=== PATIENT | female | born 1975 | race Caucasian/White ===

== ENCOUNTER → 2016-11-09 | Day surgery (SDC) | payer OTHER ==
[~2016-11-09] MED LIST: ASPI81 PO; BACITRACIN IM FOR SOLN 50,000 UNIT VIAL ONE; CLINDAMYCIN PHOS 900 MG/6 ML VIAL ONE; CYCL-36 PO; FISH300C2 PO; GLUCTAB PO; HYDROmorphone HCL PF 2 MG/ML VIAL ONE; LACTATED RINGER'S 1000 ML INJ 1,000 ML ONE; LIDOCAINE 1%/EPINEPHrine 1:100,000 SOLN 50 ML VIAL ONE; MIDAZOLAM HCL 2 MG/2 ML VIAL ONE; ONDANSETRON HCL 4 MG/2 ML VIAL IV PUSH ONE; PERC5TAB12 PO; PREN0.01 PO; PROPOFOL 200 MG/20 ML AMP IV ONE; SM F10002 PO; SODIUM CHLORIDE 0.9% INJ 10 ML ONE; SODIUM CHLORIDE 0.9% SOLN 100 ML (PAB) BAG IV ONE; SPIR50TA21 PO; ceFAZolin INJ 1,000 MG VIAL ONE; oxyCODONE/ACETAMINOPHEN 5 MG/325 MG TAB ONE
--- NOTE | 2016-11-10 09:20 | MP ---
cc: MIAH RAMIREZ M.D. DATE OF SURGERY: 11/09/2016 PREOPERATIVE DIAGNOSIS Status post bilateral mastectomies and bilateral tissue rooming house operator reconstruction. POSTOPERATIVE DIAGNOSIS Status post bilateral mastectomies and bilateral tissue rooming house operator reconstruction. OPERATION Bilateral stage II breast reconstruction with removal of tissue rooming house operator, reshaping the breast and silicone gel, style 20 600 cc smooth round implant. SURGEON Dr. Ramirez. ANESTHESIA General. INDICATIONS A 41-year-old white female with history of breast cancer, bilateral breast mastectomies, bilateral tissue rooming house operator placement and fillup. No radiation, no chemo. The patient has done very well. Since the surgery the current expansion is 590 ccs. The patient has fairly broad based chest. The current volume is adequate for her cup size. The patient was explained overall the implant selection process, the profile anywhere from moderate plus profile to a extra high profile silicone gel implants were explained. She is willing to go ahead with the appropriate match for her body and is okay with the high profile implants. Overall the volume is also to her liking. The patient understands the possibility of risk and complications including bleeding, infection, wound healing problems, wound dehiscence, prosthesis exposure, loss of reconstruction and future surgeries and also general risk and complication with any surgery and anesthesia. She is willing to go ahead with the surgery. PROCEDURE The patient was brought to the operating room, was given supine position. Anesthesia was started. Prep and drape was done. IV antibiotic had been given. The time-out was called and completed. Lidocaine 1% with epi and saline dilute solution was used to inject around the scars. The old scars were excised. They are horizontal inframammary crease level scar riding approximately three-quarters of an inch on the current time and position. She also has corner keloids. The scar including the keloids were excised. The expanders were exposed through the previous AlloMax. There is adequate thickness of the flap. The expanders were removed and the cavity was double-checked. The lateral aspect was closed for approximately 1-1/2 inch, after removing the capsule, the inframammary fold was shortened by about half an inch. The medial pectoral muscle was released and superior pole was also opened slightly. The hemostasis was excellent. No need for drains. The entrance to the pocket was prepared with 2-0 Vicryl open sutures. The implants selected are Natrelle style 20, 600 cc implants, serial number [id number] on the patient's right side, serial number [id number] on the patient's left side. The implants were placed in the pocket, posterior tab was verified, borders were smooth. The 2-0 Vicryl sutures were tied down protecting the lower pole of the implant. The rest of the closure was done with 2-0 Vicryl deep sutures and 3-0 Prolene subcuticular running sutures. The patient remained stable, intraoperative blood loss less than 20 ccs. No complications. signed, not fully reviewed MD RICK Oglesby/[email or web address] /10:15 AM /9:03 AM MTDD
== END | disposition home or self-care (01) ==
LOC: ESDC 07:01
PROVIDERS: ATTEND Plastic Surgery
DX: Z42.1 Encounter for breast reconstruction following mastectomy (principal); Z90.13 Acquired absence of bilateral breasts and nipples; Z85.3 Personal history of malignant neoplasm of breast
CPT/HCPCS: 00400; 11970; C1789; J1170; J2250; J2405; J3010; J7120; J0690